=== PATIENT | male | born 2000 | race American Indian/Alaskan Native ===

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

== ENCOUNTER 2019-11-05 18:24 | Emergency (ER) | payer SELFPAY ==
[2019-11-05 18:44] VITALS: BP 123/83
--- NOTE | 2019-11-05 21:02 | Emergency Department Report ---
Chief Complaint: Chest Pain Stated Complaint: CHEST PAIN/EDWIN/WEAK Time Seen by Provider: 11/05/19 20:52 - HPI History of Present Illness: 19-year-old -[place] male chest pain that started 3 months ago. Patient states pain is off and on patient states that he had pain and swelling at work. 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 Patient states since he has been sitting here his pain is dissipated. Patient denies any nausea vomiting no shortness of breath no headache. Patient reports that when he takes ibuprofen or Aleve pain improves. - Exam Vital Signs: Vital Signs 11/05/19 18:43 Temperature 98.8 F Pulse Rate 92 H Respiratory 16 Rate Blood Pressure 123/83 O2 Sat by Pulse 99 Oximetry Physical Exam: Gen: alert oriented NAD Cardic: regular rate and rhythm no murmurs appreciated Resp: Clear to auscultation bilateral no wheezing no rales or rhonchi. Abdomen: Soft nontender nondistended normal bowel sounds. MSE screening note: Focused history and physical exam performed. Due to findings the following was ordered: 19-year-old -[place] male chest pain that started 3 months ago. Patient states pain is off and on patient states that he had pain and swelling at work. 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 Patient states since he has been sitting here his pain is dissipated. Patient denies any nausea vomiting no shortness of breath no headache. Patient reports that when he takes ibuprofen or Aleve pain improves. Discussed with patient continue with ibuprofen or Tylenol for pain. Discussed with patient that he does repetitive work with lifting heavy objects as this can exacerbate his chest discomfort. Also discussed the patient needs to follow-up with a primary care provider. Patient verbalized understanding ED Disposition for MSE Clinical Impression: Atypical chest pain Disposition: Z-07 MED SCREENING EXAM-LEFT Is pt being admited?: No Does the pt Need Aspirin: No Condition: Stable Instructions: Chest Pain (ED), Costochondritis (ED) Additional Instructions: Continue taking ibuprofen or Tylenol for pain management. Follow-up with a primary care provider I have listed several below for your convenience. Referrals: RASHIDA PRITCHARD MD [Primary Care Provider] - 3-5 Days PAULINA IVY MD [Staff Physician] - 3-5 Days [facility] [Provider Group] - 3-5 Days Forms: Work/School Release Form(ED)
== END 2019-11-05 21:05 | disposition left against medical advice (07) ==
LOC: ED 18:24
DX: R07.9 Chest pain, unspecified (principal); Z53.21 Procedure and treatment not carried out due to patient leaving prior to being seen by health care provider
CPT/HCPCS: 93005